=== PATIENT | female | born 1980 | race Caucasian/White ===

== ENCOUNTER → 2019-01-03 | Outpatient (CLI) | payer OTHER | LOC: COL.RAD 08:58 | DX: G43.009 Migraine without aura, not intractable, without status migrainosus (principal) ==

== ENCOUNTER → 2019-04-13 | Outpatient (CLI) | payer OTHER | LOC: MHCPAIN 09:16 | DX: G89.29 Other chronic pain (principal); R51 Headache; M54.81 Occipital neuralgia | CPT/HCPCS: G0463; J1100 ==

== ENCOUNTER → 2019-04-27 | Outpatient (CLI) | payer OTHER | LOC: MHCPAIN 14:05 | DX: G89.29 Other chronic pain (principal); M54.12 Radiculopathy, cervical region; M54.81 Occipital neuralgia; R51 Headache; M47.812 Spondylosis without myelopathy or radiculopathy, cervical region | CPT/HCPCS: G0463 ==

== ENCOUNTER → 2020-09-27 | Outpatient (CLI) | payer OTHER | LOC: COL.RAD 12:11 | DX: R10.32 Left lower quadrant pain (principal) ==

== ENCOUNTER → 2020-10-15 | Outpatient (CLI) | payer OTHER | LOC: MC.RAD 08:05 | DX: Z12.31 Encounter for screening mammogram for malignant neoplasm of breast (principal) ==

== ENCOUNTER → 2021-08-13 | Outpatient (CLI) | payer OTHER | LOC: COL.RAD 12:25 | DX: M25.551 Pain in right hip (principal) | CPT/HCPCS: J3301; Q9967 ==

== ENCOUNTER → 2021-12-27 | Outpatient (CLI) | payer OTHER | LOC: MC.RAD 13:51 | DX: N64.89 Other specified disorders of breast (principal) ==

== ENCOUNTER → 2022-06-30 | Outpatient (CLI) | payer OTHER | LOC: MC.RAD 07:49 | DX: N60.11 Diffuse cystic mastopathy of right breast (principal); N63.20 Unspecified lump in the left breast, unspecified quadrant ==

== ENCOUNTER → 2022-08-19 | Outpatient (CLI) | payer OTHER | LOC: COL.RAD 12:38 | DX: M25.551 Pain in right hip (principal) | CPT/HCPCS: J3301; Q9967 ==

== ENCOUNTER → 2024-04-12 | Outpatient (CLI) | payer OTHER | LOC: MC.RAD 09:51 | DX: Z12.31 Encounter for screening mammogram for malignant neoplasm of breast (principal) ==